=== PATIENT | female | born 2000 | race African-American/Black ===

== ENCOUNTER 2019-04-17 05:01 | Emergency (ER) | payer SELFPAY ==
[~2019-04-17] VITALS: Ht 167.6 cm; Wt 82.0 kg
[2019-04-17] MEDS ORDERED: ONDANSETRON HCL 4MG TABLET PO ONE (06:45)
[2019-04-17 07:10] VITALS: BP 125/72
== END 2019-04-17 07:12 | disposition home or self-care (01) ==
LOC: ER 05:01
DX: R11.0 Nausea (principal)
CPT/HCPCS: 99283; Q0162